=== PATIENT | female | born 1980 | race Native Hawaiian/Other Pacific Islander ===

== ENCOUNTER 2022-04-06 17:09 | Outpatient (CLI) | payer OTHER ==
[2022-04-06 17:42] LABS: PLATELET COUNT 347 K/uL (152-353)
[2022-04-06 17:45] LABS: POTASSIUM 3.5 mmol/L (3.6-5.2)
== END 2022-04-06 19:05 | disposition home or self-care (01) ==
LOC: LABW 17:09
PROVIDERS: ATTEND Nurse Practitioner Family
DX: R10.13 Epigastric pain (principal)
CPT/HCPCS: 36415; 80053; 81000; 82150; 83690; 85027; 87077; 87086; 87088; 87186

== ENCOUNTER 2022-04-15 08:48 | Outpatient (CLI) | payer OTHER | END 2022-04-15 19:11 | disposition home or self-care (01) | LOC: NM 08:48 | PROVIDERS: ATTEND Nurse Practitioner Family | DX: R10.13 Epigastric pain (principal) | CPT/HCPCS: A9541 ==

== ENCOUNTER 2022-07-28 11:13 | Outpatient (CLI) | payer OTHER ==
[~2022-07-28] VITALS: Ht 154.9 cm; Wt 72.6 kg
[2022-07-28 11:20] VITALS: BP 172/88; TEMP 98.7
[2022-07-28 11:57] VITALS: BP 154/87; TEMP 99.1
== END 2022-07-28 21:03 | disposition home or self-care (01) ==
LOC: INF 11:13
PROVIDERS: ATTEND Family Medicine
DX: E86.0 Dehydration (principal)
CPT/HCPCS: 96365; 96366

== ENCOUNTER 2023-04-01 17:51 | Outpatient (CLI) | payer OTHER | END 2023-04-01 19:43 | disposition home or self-care (01) | LOC: RAD 17:51 | PROVIDERS: ATTEND Nurse Practitioner Family | DX: R10.11 Right upper quadrant pain (principal) | CPT/HCPCS: Q9963 ==

== ENCOUNTER 2023-04-14 17:01 | Emergency (ER) | payer OTHER ==
[~2023-04-14] VITALS: Ht 139.7 cm; Wt 42.6 kg
[2023-04-14 17:56] LABS: PLATELET COUNT 350 K/uL (152-353)
[2023-04-14 18:03] LABS: POTASSIUM 3.1 mmol/L (3.6-5.2)
[2023-04-14 21:05] VITALS: BP 157/95; TEMP 98.5
== END 2023-04-14 21:05 | disposition home or self-care (01) ==
LOC: ED 17:01
PROVIDERS: Family Medicine
DX: R11.15 Cyclical vomiting syndrome unrelated to migraine (principal); R10.9 Unspecified abdominal pain; F17.210 Nicotine dependence, cigarettes, uncomplicated; F12.90 Cannabis use, unspecified, uncomplicated
CPT/HCPCS: 80053; 81025; 82150; 83605; 83690; 85027; 96365; 96366; 96374; 96375; 99284; J2270; J2405

== ENCOUNTER 2023-08-17 12:53 | Outpatient (CLI) | payer OTHER | END 2023-08-17 19:06 | disposition home or self-care (01) | LOC: CT 12:53 | PROVIDERS: ATTEND Nurse Practitioner Family | DX: S00.03XA Contusion of scalp, initial encounter (principal); Y92.89 Other specified places as the place of occurrence of the external cause ==